=== PATIENT | male | born 1950 | race Native Hawaiian/Other Pacific Islander ===

== ENCOUNTER 2017-10-17 00:43 | Emergency (ER) | payer OTHER ==
[~2017-10-17] VITALS: Ht 182.9 cm; Wt 79.8 kg
[2017-10-17 01:30] LABS: PLATELET COUNT 176 K/uL (142-355)
[2017-10-17 01:41] LABS: POTASSIUM 3.4 mmol/L (3.6-5.2); SODIUM 135 mmol/L (136-145)
[2017-10-17 01:51] LABS: PARTIAL THROMBOPLASTIN TIME 25.4 SECONDS (24.5-33.6)
[2017-10-17] MEDS ORDERED: CARV12.5 PO (03:06)
[2017-10-17] MEDS ORDERED: LISI20TA11 PO (03:07)
[2017-10-17] MEDS ORDERED: OMEPRAZOLE20 M1 PO (03:08)
[2017-10-17] MEDS ORDERED: JANTOVEN6 MG PO (03:08)
[2017-10-17] MEDS ORDERED: MICROZIDE12.5 MG PO (03:09)
[2017-10-17] MEDS ORDERED: ROBAXIN-750750 MG PO (03:10)
[2017-10-17] MEDS ORDERED: HYDR10TA47A PO (03:10)
[2017-10-17] MEDS ORDERED: BUDE1AER5 INH (03:10)
[2017-10-17] MEDS ORDERED: CLON0.1T16 PO (03:11)
[2017-10-17] MEDS ORDERED: HYDRALAZINE25 MG PO (03:11)
[2017-10-17] MEDS ORDERED: ALBUTEROL0.083 % IN (03:12)
[2017-10-17 05:16] VITALS: BP 129/81; TEMP 97.4
== END 2017-10-17 04:50 | disposition short-term general hospital (02) ==
LOC: ED 00:43
PROC: 5A12012 Performance of Cardiac Output, Single, Manual (ICD-10-PCS; principal; 2017-10-17)
DX: I46.9 Cardiac arrest, cause unspecified (principal); I21.09 ST elevation (STEMI) myocardial infarction involving other coronary artery of anterior wall
CPT/HCPCS: 36415; 80053; 81000; 82550; 84484; 85027; 85610; 85730; 92950; 93005; 94760; 96361; 96365; 96366; 96372; 96375; 96376; 99291; J0171; J1650; J1940; J2250; J2270; J2405; J3490